=== PATIENT | female | born 1930 | race Two or more races ===

== ENCOUNTER 2021-01-30 21:48 | Emergency (ER) | payer OTHER ==
[~2021-01-30] VITALS: Ht 157.5 cm; Wt 56.7 kg
--- NOTE | 2021-01-30 21:56 | NUR ---
PT AAOX2, ([place] SPEAKING) BIBRA 60 FOR HIGH BLOOD SUGAR WITH NV, FIELD BS 500. PT PLACED IN A GOWN, ON MONITOR AND PULSE OX. LINE ESTABLSIHED RW 18G, BLOOD WORK COLLECTED, SENT TO LAB. 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 UPON CHECKING BG STATES ABOVE 600. ER AWARE. WILL CONTINUE TO MONITOR. PT UNABLE TO PROVIDE URINE AT THIS TIME.
[2021-01-30] MEDS ORDERED: ONDANSETRON HCL/PF 4 MG/2 ML VIAL ONE (22:00)
[2021-01-30] MEDS ORDERED: IV NS 0.9% 500 ML BAG IV ONE (22:00)
[2021-01-30] MEDS ORDERED: ONDANSETRON HCL/PF 4 MG/2 ML VIAL IVP ONE (22:00)
--- NOTE | 2021-01-30 22:05 | NUR ---
PT MEDICATED ORDERED.
--- NOTE | 2021-01-30 22:06 | NUR ---
JIG WORKER AT [facility] FOR BLOOD DRAW.
[2021-01-30 22:34] LABS: BASOPHILS # (AUTO) 0.1 /CMM (0.0-0.2); BASOPHILS % (AUTO) 0.4 % (0.0-2.0); HEMATOCRIT 38 % (33-45); HEMOGLOBIN 11.7 g/dL (11.5-14.8); LYMPHOCYTES # (AUTO) 0.6 /CMM (0.8-4.8); LYMPHOCYTES % (AUTO) 4.2 % (20.0-44.0); MEAN CORPUSCULAR HGB CONC 31 g/dl (31.0-36.0); MEAN CORPUSCULAR VOLUME 96 fL (82-100); MONOCYTES # (AUTO) 0.6 /CMM (0.1-1.30); MONOCYTES % (AUTO) 3.7 % (2.0-12.0); NEUTROPHILS # (AUTO) 13.9 /CMM (1.8-8.9); NEUTROPHILS % (AUTO) 91.7 % (43.0-81.0); PLATELET COUNT (AUTO) 266 /CMM (150-450); RED BLOOD CELL COUNT(AUTO) 3.92 MIL/uL (4.0-5.2); WHITE BLOOD COUNT (AUTO) 15.2 K/uL (4.3-11.0)
[2021-01-30 22:39] LABS: CALCIUM, SERUM 9.6 mg/dL (8.5-10.1); CHLORIDE 95 mmol/L (98-107); CREATININE 2.1 mg/dL (0.6-1.3); POTASSIUM 5.3 mmol/L (3.5-5.1); SODIUM SERUM 132 mmol/L (136-145); UREA NITROGEN, BLOOD 44 mg/dL (7-18)
[2021-01-30 22:44] LABS: ALANINE AMINOTRANSFERASE 17 U/L (12-78); ALBUMIN 3.9 g/dL (3.4-5.0); ALKALINE PHOSPHATASE 97 U/L (46-116); ASPARTATE AMINOTRANSFERASE 14 U/L (15-37); BILIRUBIN,DIRECT 0.1 mg/dL (0.0-0.2); BILIRUBIN,TOTAL 0.4 mg/dL (0.2-1.0); CARBON DIOXIDE 5 mmol/L (21-32); GLUCOSE 761 mg/dL (74-106); LIPASE 173 U/L (73-393); TOTAL PROTEIN, SERUM 7.8 g/dL (6.4-8.2)
--- NOTE | 2021-01-30 22:46 | NUR ---
CRITICALS BUN 44 CR 2.1 CO2 5 BG 761
[2021-01-30] MEDS ORDERED: INSULIN REGULAR, HUMAN 100 UNIT/ML 10 ML VIAL ONE (22:48)
[2021-01-30] MEDS ORDERED: INSULIN REGULAR, HUMAN 100 UNITS in IV NS 0.9% 100 ML IV PRN (23:00)
[2021-01-30] MEDS ORDERED: IV NS 0.9% 1,000 ML IV PRN (23:00)
--- NOTE | 2021-01-30 23:00 | NUR ---
BG 593 ER AWARE
--- NOTE | 2021-01-30 23:00 | NUR ---
PER ER START INSULIN @ 7UNITS/HR.
--- NOTE | 2021-01-30 23:11 | NUR ---
ADDENDUM: Intravenous End Time Documentation: Insulin Drip (100 units/ NS 100) start time: 2311 PM running at 7 units per hour IV site: Left Hand PIV # 20; port # 1 note: Infusing during transfer to [place] - 01/31/2021 at 359 AM
--- NOTE | 2021-01-30 23:27 | NUR ---
CALLED [facility], AWAITING MD CALL BACK
--- NOTE | 2021-01-30 23:34 | NUR ---
[facility]ESS[facility] DICKSON [facility] REGARDING PT.
--- NOTE | 2021-01-30 23:42 | NUR ---
LAB CALLED REGARDING NEGATIVE COVID RESULT.
--- NOTE | 2021-01-30 23:45 | NUR ---
URINE COLLECTED, SENT TO LAB.
[2021-01-30 23:56] LABS: BILIRUBIN,URINE SMALL (NEGATIVE); COLOR,URINE YELLOW (YELLOW); LEUKOCYTE ESTERASE ,URINE NEGATIVE (NEGATIVE); NITRITE, URINE NEGATIVE (NEGATIVE); PROTEIN,URINE 30 mg/dl (NEGATIVE); UGLUCOSE >=1000 mg/dL (NEGATIVE); UROBILINOGEN,URINE 0.2 EU/dL (0.2)
[2021-01-31 00:26] LABS: BACTERIA,URINE None seen /HPF (None Seen); RBC,URINE 0-2 /HPF (0-2); SQUAMOUS EPITHELIAL CELL,UR Few /HPF (None Seen); URINE AMORPHOUS URATE Few /HPF (None Seen)
--- NOTE | 2021-01-31 02:00 | NUR ---
SPOKE WITH DEANNA RODRIGUEZ PT WILL BE GOING TO [facility] IS ACCEPTING [phone] IS THE NUMBER FOR REPORT AND THEY ARE SENDING CCT-RN UNIT VIA PRN AT 1810.
--- NOTE | 2021-01-31 02:21 | NUR ---
REPORT GIVEN TO JENNIFER NICKERSON FROM [facility]
[2021-01-31 03:12] VITALS: BP 128/71
--- NOTE | 2021-01-31 03:19 | NUR ---
[facility] TRANSPORT WAS DELAYED FROM 0230 TO 0325 [facility]
[2021-01-31] MEDS ORDERED: DILTIAZEM HCL 25 MG IV ONE (03:35)
--- NOTE | 2021-01-31 03:47 | NUR ---
REPORT GIVEN TO BACILIO Jack RN. WITH [facility].
--- NOTE | 2021-01-31 03:57 | NUR ---
PT TRANSFERED TO [facility].
[2021-01-31] MEDS ORDERED: DILTIAZEM HCL 50 MG IV IV ONE (04:00)
== END 2021-01-31 04:07 | disposition short-term general hospital (02) ==
LOC: ER 21:50
DX: E11.10 Type 2 diabetes mellitus with ketoacidosis without coma (principal); R06.02 Shortness of breath; Z20.822 Contact with and (suspected) exposure to COVID-19; M48.00 Spinal stenosis, site unspecified; F32.9 Major depressive disorder, single episode, unspecified; M81.0 Age-related osteoporosis without current pathological fracture
CPT/HCPCS: 36415; 71045; 80048; 80076; 81001; 82010; 82962 ×7; 83690; 84484; 85025; 85730; 87077; 87086; 87186; 87426; 93005; 96365; 96366; 96375; 99291; C9803; J1815; J2405; J3490; J7030; J7040